=== PATIENT | male | born 1970 | race Caucasian/White ===

== ENCOUNTER 2020-12-23 06:54 | Inpatient (IN) ==
[2020-12-23] MEDS ORDERED: IOPAMIDOL 100 ML BOTTLE IV ONE (06:55)
[2020-12-23] MEDS ORDERED: ONDANSETRON 4 MG/2 ML VIAL IV ONE (07:35)
[2020-12-23] MEDS ORDERED: HYOSCYAMINE SULFATE 0.5 MG/ML AMPUL IV ONE (07:35)
[2020-12-23] MEDS ORDERED: 0.9 % SODIUM CHLORIDE 1,000 ML IV ONE (07:35)
--- NOTE | 2020-12-23 07:40 | Emergency Department Note ---
Abdominal Pain HPI General Chief Complaint: Abdominal Pain Time Seen by Provider: 12/23/20 07:21 Source: patient Mode of arrival: ambulatory Limitations: no limitations History of Present Illness HPI Narrative: Narrative: Presents to room T5 for evaluation of abdominal pain with vomiting and diarrhea. The patient reports symptoms for started 4 days ago. He describes nausea and vomiting with associated abdominal cramping. He describes the cramping as moderate to severe and diffuse in location. He also reports multiple episodes of watery, nonbloody, nonmelanotic diarrhea. He states yesterday the diarrhea has stopped and now he feels like he cannot move his bowels. He is actually asking for a laxative. He is still having diffuse abdominal cramping. He denies any previous episodes. No personal or family history of inflammatory bowel disease. He denies any fevers or chills. No change in appetite. No dysuria, hematuria frequency urgency. No back pain. He states symptoms are constant. He denies any exacerbating or alleviating factors. Related Data Previous Rx's Medication Instructions Recorded cephalexin 500 mg PO QID #40 cap 05/22/17 cephalexin [Keflex] 500 mg PO QID #30 cap 05/10/20 sulfamethoxazole-trimethoprim 1 tab PO BID #14 tab 05/10/20 [Bactrim DS] Allergies Allergy/AdvReac Type Severity Reaction Status Date / Time No Known Drug Allergies Allergy Verified 05/10/20 06:04 Review of Systems ROS ROS Narrative: Narrative: All systems ED: reviewed and negative except as stated. [facility] Narrative Patient History Narrative: Narrative: Medical/Surgical/Family History All Active Problems (Updated 12/23/20 @ 10:25 by Danis Howard MD) Strain of right inguinal muscle (Acute) Ankle sprain and strain (Acute) Rib contusion (Acute) Cellulitis (Acute) Bee sting reaction (Acute) Partial obstruction of small intestine (Acute) Medical History Strain of right inguinal muscle Social History Smoking Status: Smokeless tobacco Exam Narrative Narrative: Narrative: General Limitations: no limitations General appearance: Present alert and in no apparent distress Head Head: Present atraumatic, normocephalic and normal inspection Eye Eye: Present normal appearance and EOMI; Absent conjunctival injection ENT ENT: Present normal exam and mucous membranes moist Neck Neck: Present normal inspection and trachea midline Respiratory Respiratory: Present normal lung sounds bilaterally; Absent respiratory distress Cardiovascular Cardiovascular: Present regular rate, normal rhythm and normal heart sounds Adbominal Abdominal: Present soft, distention (Moderate distention), tenderness (Mild to moderate diffuse tenderness to palpation) and diminished bowel sounds; Absent guarding and rebound Extremities Extremities: Present normal inspection; Absent tenderness Back Back: Present normal inspection; Absent tenderness Neurological Neurological: Present alert, oriented X3 and CN II-XII intact; Absent motor sensory deficit Psychiatric Psychiatric: Present normal affect and normal mood Skin Skin: Present warm (WNL) and dry; Absent rash Course Vital Signs Vital signs: Vital Signs Temperature 97.2 F 12/23/20 06:54 Pulse Rate 88 12/23/20 06:54 Respiratory Rate 18 12/23/20 06:54 Blood Pressure 158/102 12/23/20 06:54 Pulse Oximetry (%) 95 12/23/20 06:54 Temperature 97.2 F 12/23/20 06:54 Pulse Rate 79 12/23/20 10:20 Respiratory Rate 18 12/23/20 06:54 Blood Pressure 158/104 12/23/20 10:20 Pulse Oximetry (%) 94 12/23/20 10:20 MDM MDM Narrative Medical decision making narrative: Narrative: Patient presents for evaluation of nausea vomiting and decreased bowel movements which was preceded by watery diarrhea. The patient's labs are unremarkable. The patient CT scan does show dilated small bowel consistent with partial small bowel obstruction. On repeat exam the patient was feeling much better after symptomatic treatment. The patient is received IV fluid. I discussed the case with the on-call surgeon, Dr. Oro. He agrees to evaluate the patient for admission. We will hold on the NG tube at this time and make the patient n.p.o. Lab Data Lab results reviewed: Yes I reviewed the patient's lab results. Result diagrams: 12/23/20 07:45 12/23/20 07:45 Labs: Lab Results 12/23/20 12/23/20 12/23/20 Range/Units 07:45 07:45 07:45 WBC 8.9 (4.5-11.0) K/mcL RBC 5.39 (4.50-5.90) M/mcL Hgb 16.0 (13.5-16.5) g/dL Hct 47.9 (41.0-55.0) % MCV 88.9 (80.0-100.0) fL MCH 29.7 (26.0-34.0) pg MCHC 33.4 (31.0-36.0) g/dL RDW 11.9 (11.5-14.5) % Plt Count 316 (140-440) K/mcL MPV 9.4 (7.4-10.4) fL Neut % (Auto) 69.5 (38.0-78.0) % Lymph % (Auto) 21.8 (15.0-49.0) % [place] % (Auto) 7.5 (1.0-12.0) % Eos % (Auto) 1.1 (0.0-7.0) % Baso % (Auto) 0.1 (0.0-2.0) % Lymph # (Auto) 1.93 (1.50-4.80) K/mcL [place] # (Auto) 0.66 (0.10-0.90) K/mcL Eos # (Auto) 0.10 (0.00-0.70) K/mcL Baso # (Auto) 0.01 (0.00-0.20) K/mcL Absolute Neutrophils 6.15 (1.80-8.00) K/mcL VBG Lactic Acid 1.3 (0.5-2.0) mmol/L Sodium 141 (133-145) mmol/L Potassium 4.2 (3.3-5.1) mmol/L Chloride 103 (96-108) mmol/L Carbon Dioxide 30 (22-30) mmol/L Anion Gap 8.0 (8.0-16.0) BUN 21 H (6-20) mg/dL Creatinine 1.2 (0.7-1.2) mg/dL GFR Calculation 69 Glucose 114 H (70-105) mg/dL Calcium 9.4 (8.6-10.4) mg/dL Total Bilirubin 0.6 (0.1-1.0) mg/dL AST 27 (<40) U/L ALT 50 H (<40) U/L Alkaline Phosphatase 83 (39-117) U/L Total Protein 7.0 (5.9-8.4) gm/dL Albumin 4.3 (3.2-5.2) gm/dL Globulin 2.7 (2.2-3.7) gm/dL Albumin/Globulin Ratio 1.6 (1.0-2.3) Lipase 15 (7-60) U/L Radiology Data Radiology results reviewed: Yes I reviewed the patient's radiology results. Discharge Plan Patient/Caregiver Discharge Instructions Pt seen by CUSTOMER ENGAGEMENT MANAGER/PA only: No Clinical Impression: Partial obstruction of small intestine Patient Disposition: Xfer As Inpt ([facility]) Follow up with: No,PCP [Primary Care Provider] - Prescriptions: No Action cephalexin 500 MG capsule 500 mg PO QID Qty: 40 RF: 0 cephalexin [Keflex] 500 mg capsule 500 mg PO QID Qty: 30 RF: 0 sulfamethoxazole-trimethoprim [Bactrim DS] 800-160 mg tablet 1 tab PO BID Qty: 14 RF: 0
[2020-12-23] MEDS ORDERED: DICYCLOMINE 20 MG TABLET PO ONE (07:55)
[2020-12-23 08:24] LABS: Basophils # (Auto) 0.01 K/mcL (0.00-0.20); Basophils % (Auto) 0.1 % (0.0-2.0); Eosinophils % (Auto) 1.1 % (0.0-7.0); Hematocrit 47.9 % (41.0-55.0); Lymphocytes # (Auto) 1.93 K/mcL (1.50-4.80); Lymphocytes % (Auto) 21.8 % (15.0-49.0); Mean Cell Volume 88.9 fL (80.0-100.0); Mean Corpuscular HGB Conc 33.4 g/dL (31.0-36.0); Mean Platelet Volume 9.4 fL (7.4-10.4); Monocytes # (Auto) 0.66 K/mcL (0.10-0.90); Monocytes % (Auto) 7.5 % (1.0-12.0); Neutrophils % (Auto) 69.5 % (38.0-78.0); Platelet Count 316 K/mcL (140-440); RBC 5.39 M/mcL (4.50-5.90); Red Cell Distribution Width 11.9 % (11.5-14.5); WBC 8.9 K/mcL (4.5-11.0)
[2020-12-23 08:49] LABS: ALT/SGPT 50 U/L (<40); AST/SGOT 27 U/L (<40); Albumin 4.3 gm/dL (3.2-5.2); Albumin/Globulin Ratio 1.6 (1.0-2.3); Alkaline Phosphatase 83 U/L (39-117); Bilirubin,Total 0.6 mg/dL (0.1-1.0); Blood Urea Nitrogen 21 mg/dL (6-20); Calcium 9.4 mg/dL (8.6-10.4); Carbon Dioxide 30 mmol/L (22-30); Chloride 103 mmol/L (96-108); Globulin 2.7 gm/dL (2.2-3.7); Glomerular Filtration Rate 69; Glucose 114 mg/dL (70-105)
--- NOTE | 2020-12-23 09:41 | Cat Scan Report ---
CLINICAL INFORMATION: Diffuse abdominal pain, vomiting and diarrhea COMPARISON: None. TECHNIQUE: Following enteric contrast, 80 cc of Isovue-370 were injected intravenously, and 60 seconds later, 0.625 mm helical slices were obtained from the mid heart through the subtrochanteric regions. Following reconstruction, 2.5 mm sagittal, coronal and axial reformatted images were processed and reviewed at bone, lung and soft tissue windows. Five minutes later, 0.625 mm helical slices were obtained from the mid heart through the kidneys and viewed at soft tissue windows.The exam was performed using radiation dose optimization techniques including, but not limited to, automated exposure control, adjustment of the mA and/or kV according to patient size and use of iterative reconstruction technique. FINDINGS: Lung bases show moderate subsegmental atelectasis in the inferior right middle and lower lobes with minimal atelectasis in the inferior left lower lobe. No effusions. The visualized heart is grossly normal in size with extremely heavy calcific plaque in the proximal/mid LAD and proximal right coronary arteries. Abdominal images show mild fatty change within the liver, but no focal hepatic lesion. Gallbladder and bile ducts are normal: CBD is 5 mm. Both kidneys, adrenal glands, spleen, pancreas and aorta including its branches are normal in size configuration and attenuation without focal lesion. There is no free air or adenopathy. A small amount of free fluid is noted in the right pelvic region Pelvic images show moderate urinary bladder distention. Prostate and seminal vesicles are unremarkable. The stomach, duodenum and jejunum are mildly dilated to a transition point in the right mid abdomen (sagittal image 44, coronal image 50 and axial image 88). At the transition, there are likely adhesions or stricture resulting in partial small bowel obstruction. Distal small bowel and colon are relatively decompressed. Appendix is surgically absent. Scattered sigmoid diverticuli appreciated, but no evidence of diverticulitis. A large right inguinal hernia spans 8.5 cm and contains mesenteric fat and a small amount of intraperitoneal fluid. A smaller left inguinal hernia spans 5 cm containing only mesenteric fat. IMPRESSION: 1. Partial small bowel obstruction of the mid jejunum due to adhesion or stricture in the right mid abdomen. 2. Large right inguinal hernia containing mesenteric fat and a small amount of intraperitoneal fluid. Fluid may represent third spacing from the bowel obstruction. Small left inguinal hernia spans 4.8 cm. 3. Sigmoid diverticulosis, but no evidence of diverticulitis 4. Small hiatal hernia. 5. Subsegmental atelectasis right lower lobe. 6. Extremely heavy calcific plaque in the proximal/mid LAD and proximal right coronary artery. Patient may have occlusive or subocclusive coronary artery disease. Consider cardiology referral for stress testing Interpreted and Authenticated by: Haris Mueller 12/23/20
[2020-12-23] MEDS ORDERED: ONDANSETRON 4 MG/2 ML VIAL IV PRN (11:47)
[2020-12-23] MEDS ORDERED: morphine 4 MG/ML VIAL IV PRN (11:47)
--- NOTE | 2020-12-23 11:55 | General Surg History&Physical ---
HPI History of Present Illness Patient information: Note initiated : 12/23/20 at 11:51 am Service Date, if different from initiated Date: [] Patient: Rio Gillette 50 y/o M admitted on for Abdominal Pain. Chief Complaint: [] Chief complaint: Abdominal pain, distention, partial small bowel obstruction History of present illness: Mr. Gillette is a 50 year old M who presents with 4 to 5-day history of progressive inability to have bowel movements, nausea, emesis and abdominal distention. Patient has a significant past surgical history of an appendicitis done in the distant past, he has never had this sort of abdominal pain in the past. He reports that over the last several days he has become progressively more distended and has had crampy abdominal pain. He reports he has not had a bowel movement for several days and has not passed flatus. He denies travel outside the [place]. He denies any fevers or chills. He presented to the emergency room where CT scan is consistent with a partial small bowel obstruction. Review of Systems Review of systems: All systems are reviewed, negative other than above PFSH PFSH All Active Problems Strain of right inguinal muscle (Acute) Ankle sprain and strain (Acute) Rib contusion (Acute) Cellulitis (Acute) Bee sting reaction (Acute) Partial obstruction of small intestine (Acute) Medical History Strain of right inguinal muscle MEDS/ALLERGIES Home Medications and Allergies Home Medications Medication Instructions Recorded Confirmed Type cephalexin 500 mg PO QID #40 cap 05/22/17 Rx cephalexin [Keflex] 500 mg PO QID #30 cap 05/10/20 Rx sulfamethoxazole-trimethoprim 1 tab PO BID #14 tab 05/10/20 Rx [Bactrim DS] Allergies Allergy/AdvReac Type Severity Reaction Status Date / Time No Known Drug Allergies Allergy Verified 05/10/20 06:04 Physical Examination Vital Signs Vital signs: Temp Pulse Resp BP Pulse Ox 97.2 F 81 18 144/104 93 12/23/20 06:54 12/23/20 11:46 12/23/20 06:54 12/23/20 11:46 12/23/20 11:46 General physical appearance General physical exam: well developed, well nourished and no distress Eyes Eye exam: PERRL and normal ocular movement ENT ENT exam: normal pinna, normal nares, normal mucosa, no hearing loss and no congestion Head Head exam IM: Present atraumatic and normocephalic Neck Neck exam: no masses, no bruits, trachea midline, no lymphadenopathy and no venous distension Cardiovascular Cardiovascular exam IM: Present normal rate and rhythm Respiratory Respiratory exam: normal expansion, normal respiratory effort, clear to percussion and clear to auscultation Abdomen Abdomen: Present soft, tender (Crampy abdominal pain, no peritoneal signs ) and bowel sounds; Absent guarding, rigid and rebound Hernia: Present none Genitourinary Genitourinary (Male): Present normal penis with no external lesions Rectum Rectum: Present normal sphincter tone, no hemorrhoids, no tenderness, no masses and no bleeding Integumentary Integumentary: Present no rash, no growths and no abnormal pigmentation Neurologic Neurologic: Present normal coordination and normal sensation Musculoskeletal Musculoskeletal: Present normal gait and normal posture Psychiatric Psychiatric: Present oriented to time, oriented to person, oriented to place, speech is normal and memory intact Results Labs Result diagrams: 12/23/20 07:45 12/23/20 07:45 Labs: Abnormal lab results 12/23/20 Range/Units 07:45 BUN 21 H (6-20) mg/dL Glucose 114 H (70-105) mg/dL ALT 50 H (<40) U/L Diabetes panel 12/23/20 Range/Units 07:45 Sodium 141 (133-145) mmol/L Potassium 4.2 (3.3-5.1) mmol/L Chloride 103 (96-108) mmol/L Carbon Dioxide 30 (22-30) mmol/L BUN 21 H (6-20) mg/dL Creatinine 1.2 (0.7-1.2) mg/dL Glucose 114 H (70-105) mg/dL Calcium 9.4 (8.6-10.4) mg/dL AST 27 (<40) U/L ALT 50 H (<40) U/L Alkaline Phosphatase 83 (39-117) U/L Total Protein 7.0 (5.9-8.4) gm/dL Albumin 4.3 (3.2-5.2) gm/dL Calcium panel 12/23/20 Range/Units 07:45 Calcium 9.4 (8.6-10.4) mg/dL Albumin 4.3 (3.2-5.2) gm/dL Pituitary panel 12/23/20 Range/Units 07:45 Sodium 141 (133-145) mmol/L Potassium 4.2 (3.3-5.1) mmol/L Chloride 103 (96-108) mmol/L Carbon Dioxide 30 (22-30) mmol/L BUN 21 H (6-20) mg/dL Creatinine 1.2 (0.7-1.2) mg/dL Glucose 114 H (70-105) mg/dL Calcium 9.4 (8.6-10.4) mg/dL Adrenal panel 12/23/20 Range/Units 07:45 Sodium 141 (133-145) mmol/L Potassium 4.2 (3.3-5.1) mmol/L Chloride 103 (96-108) mmol/L Carbon Dioxide 30 (22-30) mmol/L BUN 21 H (6-20) mg/dL Creatinine 1.2 (0.7-1.2) mg/dL Glucose 114 H (70-105) mg/dL Calcium 9.4 (8.6-10.4) mg/dL Total Bilirubin 0.6 (0.1-1.0) mg/dL AST 27 (<40) U/L ALT 50 H (<40) U/L Alkaline Phosphatase 83 (39-117) U/L Total Protein 7.0 (5.9-8.4) gm/dL Albumin 4.3 (3.2-5.2) gm/dL All other labs normal. A/P Narrative A/P Narrative: This is a pleasant 50-year-old gentleman without significant past medical history who presents with signs and symptoms consistent with a partial small bowel obstruction. Patient will be admitted, made n.p.o., we will place an NG tube and follow his abdominal exam. Time Spent With Patient Time: Total time spent is greater than 50% in coordination of care (as documented) at patient's floor/unit and/or counseling patient:
[2020-12-23] MEDS ORDERED: LIDOCAINE JEL 2% 1 TUBE 5ML TOPICAL ONE (12:56)
[2020-12-23 13:20] LABS: Appearance,Urine CLEAR (Clear); Bilirubin,Urine Negative (Negative); Color,Urine YELLOW; Culture Indicated,Urine No; Glucose,Urine (UA) Negative (Negative); Ketones,Urine Negative (Negative); Leukocyte Esterase,Urine 25 /ug (Negative); Mucus,Urine FEW /hpf; Nitrate,Urine Negative (Negative); Protein,Urine Negative (Negative); Specific Gravity,Urine 1.059 (1.000-1.035); Urine Blood Negative (Negative); Urine Hyaline Cast 4 /lph (0-2); Urine RBC 2 /hpf (0-3); Urine Squamous Epithelial Cell < 1 /hpf (0-4); Urine WBC 6 /hpf (0-4); Urobilinogen,Urine Negative
[2020-12-23] MEDS: HYDROmorphone 0.5 MG/0.5 ML SYRINGE IV PRN (13:24)
[2020-12-23] MEDS: LACTATED RINGERS 1,000 ML IV SCH ×2 (13:25→21:26)
[2020-12-24] MEDS: LACTATED RINGERS 1,000 ML IV SCH ×4 (05:02→22:44)
[2020-12-24 06:58] LABS: Basophils # (Auto) 0.02 K/mcL (0.00-0.20); Basophils % (Auto) 0.3 % (0.0-2.0); Eosinophils # (Auto) 0.14 K/mcL (0.00-0.70); Eosinophils % (Auto) 2.2 % (0.0-7.0); Hematocrit 43.6 % (41.0-55.0); Hemoglobin 14.6 g/dL (13.5-16.5); Lymphocytes % (Auto) 27.3 % (15.0-49.0); Mean Cell Volume 89.3 fL (80.0-100.0); Mean Corpuscular HGB Conc 33.5 g/dL (31.0-36.0); Mean Platelet Volume 9.4 fL (7.4-10.4); Monocytes % (Auto) 6.4 % (1.0-12.0); Neutrophils % (Auto) 63.8 % (38.0-78.0); Platelet Count 271 K/mcL (140-440); RBC 4.88 M/mcL (4.50-5.90); Red Cell Distribution Width 11.7 % (11.5-14.5); WBC 6.2 K/mcL (4.5-11.0)
[2020-12-24 07:43] LABS: Blood Urea Nitrogen 15 mg/dL (6-20); Calcium 8.9 mg/dL (8.6-10.4); Carbon Dioxide 28 mmol/L (22-30); Chloride 101 mmol/L (96-108); Glomerular Filtration Rate 86; Glucose 99 mg/dL (70-105)
--- NOTE | 2020-12-24 08:26 | General Surgery Progress Note ---
SUBJECTIVE Subjective Patient information: Note initiated : 12/24/20 at 8:24 am Service Date, if different from initiated Date: [] Patient: Rio Gillette 50 y/o M admitted on 12/23/20 for Abdominal Pain. Chief Complaint: [] Interval history: Patient reports a small amount of flatus overnight, he reports that he feels less distended and his pain has mostly resolved. He has not had a bowel movement. He has no fevers chills nausea or vomiting. Constitutional Vitals: Vital Signs Temp Pulse Resp BP Pulse Ox 98.8 F 69 16 144/85 91 12/24/20 06:43 12/24/20 06:43 12/24/20 06:43 12/24/20 06:43 12/24/20 06:43 Period Temp Pulse Resp BP Sys/Valentin Pulse Ox Last 24 Hr 97.2 F-98.8 F 69-93 14-18 124-165/79-111 89-94 Intake and Output 12/23/20 12/24/20 12/24/20 21:59 05:59 13:59 Intake Total 1000 950 Output Total 500 600 Balance 500 350 Weight 199 lb 8 oz Intake & Output: Intake & Output 12/23/20 12/24/20 12/24/20 21:59 05:59 13:59 Intake Total 1000 950 Output Total 500 600 Balance 500 350 Weight 199 lb 8 oz Intake: IV 1000 950 Lactated Ringers 1,000 ml @ 125 1000 950 mls/hr IV .Q8H [facility] Rx#: [id number] Output: Urine Catheter Amount 250 Void Amount 250 600 Other: Percent of Meal Consumed 0% Urine Appearance Clear Clear Urine Color Dark Zee Dark Zee General appearance: cooperative and no acute distress Respiratory Respiratory exam: Present normal respiratory exam Cardiovascular Cardiovascular exam: Present normal rate and rhythm GI/Abdominal GI/Abdominal exam: Present normal bowel sounds, soft and distended (Less distended); Absent firm, guarding and tenderness A/P Narrative A/P Narrative: This is a 50-year-old gentleman who was mated with a partial small bowel obstruction. He has been passing some flatus, still no bowel movement. Less distended but still has some abdominal distention. Plan: Small bowel follow-through today. Time Spent With Patient Time: Total time spent is greater than 50% in coordination of care (as documented) at patient's floor/unit and/or counseling patient:
[2020-12-24] MEDS: HYDROmorphone 0.5 MG/0.5 ML SYRINGE IV PRN ×4 (10:41→23:23)
[2020-12-24] MEDS ORDERED: fentaNYL 100 MCG/2 ML VIAL IV ONE (11:27)
[2020-12-24] MEDS ORDERED: MIDAZOLAM 2 MG/2 ML VIAL IV ONE (11:30)
--- NOTE | 2020-12-24 12:27 | XRay Report ---
CLINICAL INFORMATION: Partial Small Bowel Obstruction Technique: Procedure and risks including possibility of GI tract perforation were explained the patient. He understood and wished to proceed. He was premedicated with 2 mg versed and 100 mcg of fentanyl given intravenously prior to and during the procedure. Blood pressure and pulse oximeter monitor and he maintained consciousness during the procedure. The total sedation time was 18 minutes. Total fluoroscopy time one minute eight seconds With the patient in supine position, the right nares was anesthetized with viscous lidocaine and Cetacaine spray was used to possibly anesthetize the oropharynx. A NG tube was placed via the right nares through the nasopharynx and esophagus into the stomach. Tip overlies the gastric body. The tube was then secured with tape. IMPRESSION: Successful fluoroscopic guided placement of NG tube. NG tube overlies the gastric body. Interpreted and Authenticated by: Haris Mueller 12/24/20
[2020-12-24] MEDS ORDERED: LORazepam 2 MG/ML VIAL IM PRN (18:04)
[2020-12-25] MEDS: HYDROmorphone 0.5 MG/0.5 ML SYRINGE IV PRN ×3 (02:40→08:24)
[2020-12-25] MEDS: LACTATED RINGERS 1,000 ML IV SCH ×4 (06:00→14:55)
--- NOTE | 2020-12-25 07:58 | XRay Report ---
CLINICAL INFORMATION: Partial mid jejunal obstruction COMPARISON: Abdomen and pelvic CT 12/23/2020 TECHNIQUE: Following order picker film, water-soluble contrast was injected through indwelling and T2 and serial imaging was obtained for 16.5 hours. FINDINGS: The duodenum and jejunum are mildly dilated to the known transition point in the right midabdomen. The distal small bowel and colon are relatively decompressed. Small bowel transit time is decreased to approximately four hours. A 16 hour delayed film shows all contrast in the colon IMPRESSION: Mild partial small bowel obstruction of the mid jejunum in the right midabdomen which delayed small bowel transit time to approximately four hours. A 15 hour delayed film shows complete transit of all contrast into the colon. The degree of obstruction has improved from the CT two days ago Interpreted and Authenticated by: Haris Mueller 12/25/20
[2020-12-25] MEDS ORDERED: DIATRIZOATE MEGLU/DIATRIZO SOD 30 ML BOTTLE PO ONE (08:32)
--- NOTE | 2020-12-25 09:32 | General Surgery Progress Note ---
SUBJECTIVE Subjective Patient information: Note initiated : 12/25/20 at 9:31 am Service Date, if different from initiated Date: [] Patient: Rio Gillette 50 y/o M admitted on 12/23/20 for Abdominal Pain. Chief Complaint: [] Interval history: Patient reports he feels much better this morning, has had not had multiple bowel movements, no more nausea and emesis. Small bowel follow- through results reviewed, improvement from CT scan, delayed transit however oral contrast through the colon this a.m. on x-ray. Constitutional Vitals: Vital Signs Temp Pulse Resp BP Pulse Ox 98.2 F 81 16 158/94 90 12/25/20 07:12 12/25/20 07:12 12/25/20 07:12 12/25/20 07:12 12/25/20 07:12 Period Temp Pulse Resp BP Sys/Valentin Pulse Ox Last 24 Hr 97.1 F-98.8 F 71-84 16-18 139-169/71-102 90-99 Intake and Output 12/24/20 12/25/20 12/25/20 21:59 05:59 13:59 Intake Total 5752 291 2194 Output Total 125 1200 Balance 875 -323 1000 Weight 200 lb 8 oz Intake & Output: Intake & Output 12/24/20 12/25/20 12/25/20 21:59 05:59 13:59 Intake Total 5384 819 6962 Output Total 125 1200 Balance 875 -323 1000 Weight 200 lb 8 oz Intake: IV 5539 398 9399 Lactated Ringers 1,000 ml @ 125 8805 552 2265 mls/hr IV .Q8H [facility] Rx#: [id number] Oral 0 Output: Urine/Stool Mix 125 1200 Other: Stool Color Brown Brown Brown Stool Consistency Loose Loose Liquid # Bowel Movements 1 General appearance: cooperative and no acute distress GI/Abdominal GI/Abdominal exam: Present soft and distended; Absent tenderness A/P Narrative A/P Narrative: Resolving partial small bowel obstruction. We will leave NG tube clamped, trial of clears. If he tolerates clear will remove NG tube after lunch and advance diet to regular as tolerated. Time Spent With Patient Time: Total time spent is greater than 50% in coordination of care (as documented) at patient's floor/unit and/or counseling patient:
[2020-12-25] MEDS: OMEPRAZOLE 20 MG CAPSULE PO SCH ×2 (15:49→17:25)
--- NOTE | 2020-12-25 19:57 | Discharge Plan ---
Discharge Plan Patient/Caregiver Discharge Instructions Activity: increase activity as tolerated Diet: Regular Diet Prescriptions: Continued No Known Home Meds RF: 0 Follow Up Plan Follow up with: No,PCP [Primary Care Provider] - Patient Disposition: Home, Self-Care Overall status at discharge: patient is back to baseline Discharge Orders: Discharge Order (Routine); Ordered 12/25/20 Ordered By: Alejandro Oro
--- NOTE | 2021-01-07 07:26 | Discharge Summary ---
Discharge Provider Provider Patient information: Note initiated : 01/07/21 at 7:25 am Service Date, if different from initiated Date: [] Patient: Rio Gillette 50 y/o M admitted on 12/23/20 for Abdominal Pain. Chief Complaint: [] Date of admission: 12/23/20 12:55 Discharge date: 12/25/20 Primary care physician: PCP No Consults: 12/23/20 10:20 Consult to Physician [CONS] Stat Comment: Consulting Provider: Alejandro rOo Reason For Exam: Physician to Consult COURSE Hospital Course Hospital course: Patient admitted with partial small bowel obstruction, underwent small bowel follow-through which showed complete resolution of small bowel obstruction, was started on regular diet which he tolerated without difficulty and was discharged home Discharge diagnosis: Partial small bowel obstruction Time Spent with Patient Time attestation: Total time spent providing and/or coordinating discharge services: Physical Examination Vital Signs Vital signs: Temp Pulse Resp BP Pulse Ox 98.6 F 80 18 157/96 93 12/25/20 20:35 12/25/20 20:35 12/25/20 20:35 12/25/20 20:35 12/25/20 20:35 Discharge Plan Patient/Caregiver Discharge Instructions Activity: increase activity as tolerated Diet: Regular Diet Instructions: Bowel Obstruction (DC) Activity Restrictions/Additional Instructions: Resume home diet as tolerated Increase activity as tolerated Set-up care with a provider and follow up as needed Return to ER for fever, chills, uncontrolled pain, unable to go to the bathroom, nausea and/or vomiting, swelling, redness, signs of infection, shortness of breath, chest pain, return of symptoms, or other acute symptom This discharge packet is provided to you to help keep you informed about your care. We want to ensure you get everything you need when you go home. You will also be receiving a call from us in a few days to follow up with you and see how you are doing since your discharge. This gives us a chance to listen to any concerns you maybe experiencing since you were discharged or any additional needs you may have, as well as providing us feedback on your care experience. We strive to always provide excellent care and thank you for your feedback and for choosing [facility]. Prescriptions: Continued No Known Home Meds RF: 0 Follow Up Plan Patient Disposition: Home, Self-Care Overall status at discharge: patient is back to baseline Discharge Orders: Discharge Order (Routine); Ordered 12/25/20 Ordered By: Alejandro Oro Discharge Comment: Home AMB via personal vehicle Pending Pending Pending: Diet Regular Diet Start Sat Dec 25 111 Shift Summary 12/25/20 17:28 Shift Summary by Tamika Palmer Pt was upset and wanting NG out at start of shift. Continued to have liquid stool. Given IV dilaudid for pressure pain. Dr wanted pt to try a clear liquid diet with NG in, so it would not have to be inserted. Pt stated that he could not swallow with the "tube" in. He took one swallow of water and refused to take anymore. notified, and had nurse DC the NG and start pt on regular diet. Pt tolerated lunch and slept for a couple hours. was planning on discharging tomorrow. Pt insisted that he wanted to go tonight. notified, and said that if he tolerated regular dinner he would let him go home. Pt ate some dinner and told staff he was ready to leave. Started to get dressed. notified, pt can leave AMA or wait for Dr to discharge him later this evening. Pt than agreed he would take a nap and wait. Initialized on 12/25/20 17:28 - END OF NOTE
== END 2020-12-25 20:35 | disposition home or self-care (01) | DRG 390 ==
LOC: MEDSUR 06:54 → ED 06:54 → MEDSUR 12:54 → OBSVTOIN 12:55 → MEDSUR 12-24 16:21
PROVIDERS: ADMIT Surgery; ATTEND Surgery